=== PATIENT | male | born 1970 | race Caucasian/White ===

== ENCOUNTER → 2019-11-17 15:40 | Outpatient (CLI) | payer MEDICARE, MEDICAID, SELFPAY ==
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
== END ==
PROVIDERS: PCP Family Medicine; Referring Provider Anesthesiology Pain Medicine; Visit Provider Anesthesiology Pain Medicine
DX: M54.9 Dorsalgia, unspecified (principal)
CPT/HCPCS: 72100; 73560

== ENCOUNTER → 2019-11-24 15:28 | Outpatient (CLI) | payer MEDICARE, MEDICAID, SELFPAY ==
[2019-11-24 16:22] LABS: Amphetamine Urine VISTA NEGATIVE (<1000 ng/mL); Barbiturate Urine VISTA NEGATIVE (< 200 ng/mL); Benzodiazepine Urine VISTA NEGATIVE (< 200 ng/mL); Cocaine Urine VISTA NEGATIVE (< 300 ng/mL); Ecstacy Urine VISTA NEGATIVE (< 500 ng/mL); Methadone Urine VISTA NEGATIVE (< 300 ng/mL); PCP Urine VISTA NEGATIVE (< 25 ng/mL); THC Urine VISTA NEGATIVE (< 50 ng/mL); Vista UDS pH Range 6
== END ==
PROVIDERS: PCP Family Medicine; Referring Provider Anesthesiology Pain Medicine; Visit Provider Anesthesiology Pain Medicine
DX: F11.20 Opioid dependence, uncomplicated (principal)
CPT/HCPCS: 80307

== ENCOUNTER 2020-02-16 17:00 | Outpatient (RCR) | payer MEDICARE, MEDICAID, SELFPAY ==
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
--- NOTE | 2020-02-16 17:42 | HP.PTDCSUM ---
It has been my pleasure to treat FELISHA PEREZ referred by Dr. Harper Peterson MD, with the diagnosis of BACK PAIN for a total of 7 visit(s). Discharge Date: 02/16/20 Please see the following information for a summary of their discharge status. Subjective: PATIENT REPORTS HE IS HURTING TODAY BUT I LOVE THERAPY. PATIENT REPORTS THERAPY IS HELPING HIM. PATIENT REPORTS HE CAN BRING HIS FOOT BACK A LITTLE BIT MORE AND HE IS TRIPPING LESS. STATES HE IS FEELING STRONGER IN HIS CORE TOO. GOING TO THE [facility] IN THE POOL TWICE A WEEK NOW. LINETTE LOW BACK PAIN Pain Intensity (Out of 10): 0 LEFT KNEE Pain Intensity (Out of 10): 0 L hip pain Pain Intensity (Out of 10): 5 R Hip Pain Intensity (Out of 10): 4 % Improvement: 60 Objective/Function: PATIENT WAS SEEN TODAY FOR RE-ASSESSMENT OF PROGRESS TOWARD THE SET PT GOALS AND THE NEED FOR FURTHER PHYSICAL THERAPY VS READINESS FOR DISCHARGE. PATIENT IS INDEP WITH A POOL PROGRAM AT THE [facility] NOW. ALL PT GOALS HAVE BEEN MET AND PATIENT IS APPROPRIATE FOR DISCHARGE TO INDEP EX AT THIS TIME. HE HAS RESPONDED VERY WELL TO PT. UPON EXAM TODAY THE MOST SIGNIFICANT CHANGE IS HE NOW HAS NEGATIVE LINETTE LE DURAL SIGNS. Goal 1:: DECREASE C/O BACK AND LEFT KNEE PAIN Goal Progress: Goal Met Goal 2:: IMRPOVE PERSONAL CARE, LIFTING, WALKING, STANDING, SLEEP, SOCIAL LIFE, TRAVEL AND HOMEMAKING FUNCTION Goal Progress: Goal Met Goal 3:: PATIENT WILL BE INDEP WITH A POOL EX PROGRAM TO CONTINUE AT HIS LOCAL [facility] FOR CONTINUED IMPROVEMENT ONCE FORMAL PHYSICAL THERAPY CONCLUDES. Goal Progress: Goal Met Plan: D/C TO INDEP POOL PROGRAM. PATIENT IS AGREEABLE. If there are questions or concerns regarding this patient's physical therapy, please feel free to call me at [phone]. Thank you for the referral of this patient. Sincerely, Laurence Moore, PT, Cert MDT
== END 2020-02-16 19:00 | disposition home or self-care (01) ==
LOC: PT 17:00
PROVIDERS: PCP Family Medicine; Referring Provider Anesthesiology Pain Medicine; Visit Provider Anesthesiology Pain Medicine
DX: M54.9 Dorsalgia, unspecified (principal); M25.569 Pain in unspecified knee
CPT/HCPCS: 97110; 97112; 97113; 97162; 97164; 97530

== ENCOUNTER → 2020-12-29 12:54 | Outpatient (CLI) | payer MEDICARE, MEDICAID, SELFPAY ==
[2020-12-29 13:39] LABS: Amphetamine Urine VISTA NEGATIVE (<1000 ng/mL); Barbiturate Urine VISTA NEGATIVE (< 200 ng/mL); Benzodiazepine Urine VISTA NEGATIVE (< 200 ng/mL); Cocaine Urine VISTA NEGATIVE (< 300 ng/mL); Ecstacy Urine VISTA NEGATIVE (< 500 ng/mL); Methadone Urine VISTA NEGATIVE (< 300 ng/mL); PCP Urine VISTA NEGATIVE (< 25 ng/mL); THC Urine VISTA NEGATIVE (< 50 ng/mL); Vista UDS pH Range 6
== END ==
PROVIDERS: Referring Provider Anesthesiology Pain Medicine; Visit Provider Anesthesiology Pain Medicine
DX: F11.20 Opioid dependence, uncomplicated (principal)
CPT/HCPCS: 80307